=== PATIENT | female | born 1980 | race Caucasian/White ===

== ENCOUNTER 2017-04-15 09:20 | Emergency (ER) | payer SELFPAY ==
[~2017-04-15] VITALS: Ht 152.4 cm; Wt 70.3 kg
[~2017-04-15 09:20] MED LIST: ALPR0.5T PO; HYDR-2758 PO; IBUP-1027 PO; ONDA4TAB10 SL; ONDA4TAB12 PO; ONDA4TAB7 PO; TRAM50TA PO
--- NOTE | 2017-04-15 09:43 | PHYS DOC ---
Past Medical History Past Medical History: Endometriosis, Ovarian Cyst Additional Past Medical Histor: cystitist Past Surgical History: Cholecystectomy, , Hysterectomy, Other Additional Past Surgical Histo: biopsy neck for lymph node CA-neg, carpal tunnel, right shoulder, L elbow Alcohol Use: None Drug Use: Marijuana Adult General Chief Complaint Chief Complaint: ABDOMINAL PAIN [facility] HPI Patient is a 36 year old female with a history of interstitial cystitis presents the ED complaining of lower abdominal pain 1 day. Patient states she woke up yesterday with abdominal pain and has been getting worse ever since. Describes the pain as sharp. Rates the pain as 9 out of 10. History of a hysterectomy and cholecystectomy. Associated symptoms include diarrhea and nausea. States similar symptoms and treated in [place] a few months ago. Denies chest pain, shortness of breath, vomiting, dizziness, dysuria, pelvic pain, vaginal bleeding/discharge or weakness. Review of Systems Review of Systems Constitutional: Denies fever or chills [] Eyes: Denies change in visual acuity, redness, or eye pain [] HENT: Denies nasal congestion or sore throat [] Respiratory: Denies cough or shortness of breath [] Cardiovascular: No additional information not addressed in HPI [] GI: Complains of abdominal pain and nausea. Denies vomiting, bloody stools or diarrhea [] : Denies dysuria or hematuria [] Musculoskeletal: Denies back pain or joint pain [] Integument: Denies rash or skin lesions [] Neurologic: Denies headache, focal weakness or sensory changes [] Endocrine: Denies polyuria or polydipsia [] Current Medications Current Medications Current Medications Medications (Trade) Dose Ordered Sig/Mansi Start Time Stop Time Status Last Admin Dose Admin Iohexol (Omnipaque 300 Mg/ml) 75 ml 1X ONCE 04/15/17 10:00 04/15/17 10:02 DC Morphine Sulfate 4 mg 1X ONCE 04/15/17 11:30 04/15/17 11:31 DC 04/15/17 11:50 4 MG Ondansetron HCl (Zofran) 4 mg 1X ONCE 04/15/17 09:45 04/15/17 09:46 DC 04/15/17 10:03 4 MG Allergies Allergies Allergies Coded Allergies Type Severity Reaction Last Updated Verified No Known Drug Allergies 04/08/16 No Physical Exam Physical Exam Constitutional: Well developed, well nourished, no acute distress, non-toxic appearance. [] HENT: Normocephalic, atraumatic, bilateral external ears normal, oropharynx moist, no oral exudates, nose normal. [] Eyes: PERRLA, EOMI, conjunctiva normal, no discharge. [] Neck: Normal range of motion, no tenderness, supple, no stridor. [] Cardiovascular:Heart rate regular rhythm, no murmur [] Lungs & Thorax: Bilateral breath sounds clear to auscultation [] Abdomen: Bowel sounds normal, soft, MILD DIFFUSE LOWER ABDOMINAL TENDERNESS. no masses, no pulsatile masses. [] REFUSED EXAM. Skin: Warm, dry, no erythema, no rash. [] Back: No tenderness, no CVA tenderness. [] Extremities: No tenderness, no cyanosis, no clubbing, ROM intact, no edema. [] Neurologic: Alert and oriented X 3, normal motor function, normal sensory function, no focal deficits noted. [] Psychologic: Affect normal, judgement normal, mood normal. [] Current Patient Data Vital Signs Vital Signs Date Time Temp Pulse Resp B/P (MAP) Pulse Ox O2 Delivery O2 Flow Rate FiO2 04/15/17 11:57 80 20 122/81 (95) 97 Room Air 04/15/17 09:28 97.9 97.9 Lab Values Laboratory Tests Test 04/15/17 09:28 04/15/17 09:50 Urine Collection Type Void Urine Color Yellow Urine Clarity Clear Urine pH 5.5 Urine Specific [place] 1.025 Urine Protein Negative mg/dL (NEG-TRACE) Urine Glucose (UA) Negative mg/dL (NEG) Urine Ketones (Stick) Negative mg/dL (NEG) Urine Blood Moderate (NEG) Urine Nitrite Negative (NEG) Urine Bilirubin Negative (NEG) Urine Urobilinogen Dipstick 0.2 mg/dL (0.2 mg/dL) Urine Leukocyte Esterase Negative (NEG) Urine RBC 3-5 /HPF (0-2) Urine WBC 0 /HPF (0-4) Urine Squamous Epithelial Cells Mod /LPF Urine Bacteria Few /HPF (0-FEW) Urine Mucus Marked /LPF White Blood Count 11.4 x10^3/uL (4.0-11.0) H Red Blood Count 5.00 x10^6/uL (3.50-5.40) Hemoglobin 15.3 g/dL (12.0-15.5) Hematocrit 46.4 % (36.0-47.0) Mean Corpuscular Volume 93 fL (79-100) Mean Corpuscular Hemoglobin 31 pg (25-35) Mean Corpuscular Hemoglobin Concent 33 g/dL (31-37) Red Cell Distribution Width 13.3 % (11.5-14.5) Platelet Count 348 x10^3/uL (140-400) Sodium Level 138 mmol/L (136-145) Potassium Level 4.3 mmol/L (3.5-5.1) Chloride Level 104 mmol/L (98-107) Carbon Dioxide Level 27 mmol/L (21-32) Anion Gap 7 (6-14) Blood Urea Nitrogen 9 mg/dL (7-20) Creatinine 0.9 mg/dL (0.6-1.0) Estimated GFR (Cockcroft-Gault) 71.7 BUN/Creatinine Ratio 10 (6-20) Glucose Level 114 mg/dL (70-99) H Calcium Level 9.3 mg/dL (8.5-10.1) Total Bilirubin 0.2 mg/dL (0.2-1.0) Aspartate Amino Transferase (AST) 14 U/L (15-37) L Alanine Aminotransferase (ALT) 16 U/L (14-59) Alkaline Phosphatase 83 U/L (46-116) Total Protein 7.4 g/dL (6.4-8.2) Albumin 4.0 g/dL (3.4-5.0) Albumin/Globulin Ratio 1.2 (1.0-1.7) Lipase 365 U/L (73-393) Laboratory Tests 04/15/17 09:50 Laboratory Tests 04/15/17 09:50 EKG EKG [] Radiology/Procedures Radiology/Procedures CT abdomen/pelvis Indication: Lower abdominal pain Technique: CT abdomen/pelvis with 75 mL of Omnipaque 300 with multiplanar reformats. Comparison: Previous study from 03/19/2016 Findings: Heart is normal in size. No pericardial or pleural effusion. Stable 6 mm ground is opacity in the right middle lobe dating back to 2014. Mild dependent atelectasis. 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 Status post cholecystectomy. Spleen within normal limits. Pancreas within normal limits. Adrenal glands show no nodularity. No suspicious renal lesions. Shotty para-aortic mesenteric lymph node noted, the largest measuring 1.1 cm (series 2 image 41), previously same. Multiple central mesenteric lymph nodes noted, the largest measuring 9 mm (series 2 image 43). No bowel obstruction. Appendix is visualized and is within normal limits. Bladder within normal limits. Uterus is not visualized likely surgically absent. No solid adnexal lesions. No free pelvic fluid. No suspicious bony lesions. Impression: 1. Multiple prominent and minimally enlarged mesenteric lymph nodes. These are nonspecific but may represent mesenteric adenitis. 2. Stable 6 mm right middle lobe nodule dating back to August 2014. This is most likely benign. PQRS Compliance Statement: One or more of the following individualized dose reduction techniques were utilized for this examination: 1. Automated exposure control 2. Adjustment of the mA and/or kV according to patient size 3. Use of iterative reconstruction technique[] Course & Med Decision Making Course & Med Decision Making Pertinent Labs and Imaging studies reviewed. (See chart for details) []Discussed labs and imaging with patient. Patient's pain improved. On re- examination, abdomen is soft nontender nondistended. No peritoneal signs. Patient will be treated for mesenteric adenitis with analgesics and anti- inflammatories outpatient as well as close follow-up. Patient states she had similar symptoms when she was in [place] and treated with the same regimen. Vitals stable, no acute distress. Discussed follow-up in 1-2 days with PCP. Discussed the importance of follow-up. Discussed reasons to return to the ED. Patient understands and agrees with plan. Mother at bedside. Dragon Disclaimer Dragon Disclaimer This electronic medical record was generated, in whole or in part, using a voice recognition dictation system. Departure Departure Impression: Primary Impression: Abdominal pain Additional Impression: Mesenteric adenitis Disposition: 01 HOME, SELF-CARE Condition: STABLE Referrals: NEYDA DOVER (PCP) Patient Instructions: Mesenteric Adenitis Scripts Hydrocodone/Apap 5-325 (NORCO 5-325 TABLET) 1 Each Tablet 1 TAB PO TID, #12 TAB Prov: DUKE COPELAND 04/15/17 Ibuprofen (IBUPROFEN) 800 Mg Tablet 800 MG PO PRN Q6HRS Y for INFLAMMATION, #30 TAB Prov: DUKE COPELAND 04/15/17 Problem Qualifiers DUKE COPELAND Apr 15, 2017 09:43
[2017-04-15] MEDS ORDERED: MORPHINE SULFATE 4 MG/ML DISP.SYRIN. IV ONE ×2 (09:45→11:30)
[2017-04-15] MEDS ORDERED: ONDANSETRON PF 4 MG/2 ML VIAL. IV ONE (09:45)
[2017-04-15 09:46] LABS: BILIRUBIN,URINE NEGATIVE (NEG); GLUCOSE,URINE NEGATIVE (NEG); NITRITE,URINE NEGATIVE (NEG); PH,URINE 5.5; PROTEIN,URINE NEGATIVE (NEG-TRACE); UROBILINOGEN,URINE 0.2 mg/dL (0.2 mg/dL)
[2017-04-15 09:57] LABS: BACTERIA,URINE FEW /HPF (0-FEW); SQUAMOUS EPITHELIAL CELL,UR MOD /LPF; WBC,URINE 0 /HPF (0-4)
[2017-04-15] MEDS ORDERED: IOHEXOL 300 MG/ML 75 ML VIAL IV ONE ×2 (10:00)
[2017-04-15 10:06] LABS: HEMATOCRIT 46.4 % (36.0-47.0); HEMOGLOBIN 15.3 g/dL (12.0-15.5); RED CELL DISTRIBUTION WIDTH 13.3 % (11.5-14.5); WHITE BLOOD COUNT 11.4 x10^3/uL (4.0-11.0)
[2017-04-15 10:17] LABS: CALCIUM 9.3 mg/dL (8.5-10.1); CREATININE 0.9 mg/dL (0.6-1.0); GFR 71.7; POTASSIUM 4.3 mmol/L (3.5-5.1)
[2017-04-15 10:23] LABS: ALBUMIN/GLOBULIN RATIO 1.2 (1.0-1.7); TOTAL BILIRUBIN 0.2 mg/dL (0.2-1.0); TOTAL PROTEIN 7.4 g/dL (6.4-8.2)
--- NOTE | 2017-04-15 11:02 | RAD ---
CT abdomen/pelvis Indication: Lower abdominal pain Technique: CT abdomen/pelvis with 75 mL of Omnipaque 300 with multiplanar reformats. Comparison: Previous study from 03/19/2016 Findings: Heart is normal in size. No pericardial or pleural effusion. Stable 6 mm ground is opacity in the right middle lobe dating back to 2014. Mild dependent atelectasis. 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 Status post cholecystectomy. Spleen within normal limits. Pancreas within normal limits. Adrenal glands show no nodularity. No suspicious renal lesions. Shotty para-aortic mesenteric lymph node noted, the largest measuring 1.1 cm (series 2 image 41), previously same. Multiple central mesenteric lymph nodes noted, the largest measuring 9 mm (series 2 image 43). No bowel obstruction. Appendix is visualized and is within normal limits. Bladder within normal limits. Uterus is not visualized likely surgically absent. No solid adnexal lesions. No free pelvic fluid. No suspicious bony lesions. Impression: 1. Multiple prominent and minimally enlarged mesenteric lymph nodes. These are nonspecific but may represent mesenteric adenitis. 2. Stable 6 mm right middle lobe nodule dating back to August 2014. This is most likely benign. PQRS Compliance Statement: One or more of the following individualized dose reduction techniques were utilized for this examination: 1. Automated exposure control 2. Adjustment of the mA and/or kV according to patient size 3. Use of iterative reconstruction technique
[2017-04-15] MEDS ORDERED: IBUP-1060 PO (11:20)
[2017-04-15] MEDS ORDERED: HYDR-971 PO (11:20)
[2017-04-15 11:57] VITALS: BP 122/81
== END 2017-04-15 12:00 | disposition home or self-care (01) ==
LOC: ER 09:20
DX: I88.0 Nonspecific mesenteric lymphadenitis (principal); Z90.710 Acquired absence of both cervix and uterus; Z90.49 Acquired absence of other specified parts of digestive tract
CPT/HCPCS: 36415; 74177; 80053; 81001; 83690; 85027; 96374; 96375; 96376; 99285; J2270; J2405; Q9967

== ENCOUNTER 2017-07-15 10:57 | Emergency (ER) | payer SELFPAY ==
[2017-07-15 11:16] LABS: URINE HCG POC HCG NEGATIVE (Negative)
[2017-07-15 11:17] LABS: BILIRUBIN,URINE NEGATIVE (NEG); CLARITY,URINE CLEAR; COLOR,URINE YELLOW; GLUCOSE,URINE NEGATIVE (NEG); NITRITE,URINE NEGATIVE (NEG); PROTEIN,URINE NEGATIVE (NEG-TRACE); UROBILINOGEN,URINE 0.2 mg/dL (0.2 mg/dL)
[2017-07-15 11:23] LABS: SQUAMOUS EPITHELIAL CELL,UR MANY /LPF
[2017-07-15 11:24] LABS: BACTERIA,URINE MODERATE /HPF (0-FEW)
[2017-07-15 11:31] LABS: ADD MAN DIFF? NO
[2017-07-15 11:40] LABS: BASO # 0.1 x10^3/uL (0.0-0.2); BASO % 1 % (0-3); EOS # 0.4 x10^3/uL (0.0-0.7); EOS % 4 % (0-3); HEMOGLOBIN 15.5 g/dL (12.0-15.5); LYMPH # 2.9 x10^3/uL (1.0-4.8); LYMPH % 29 % (24-48); MEAN CORPUSCULAR HEMOGLOBIN 31 pg (25-35); MEAN CORPUSCULAR HGB CONC 33 g/dL (31-37); MEAN CORPUSCULAR VOLUME 93 fL (79-100); MONO # 0.5 x10^3/uL (0.0-1.1); MONO % 5 % (0-9); NEUT # 6.2 x10^3uL (1.8-7.7); NEUT % 62 % (31-73); PLATELET COUNT 372 x10^3/uL (140-400); RED BLOOD COUNT 5.04 x10^6/uL (3.50-5.40); RED CELL DISTRIBUTION WIDTH 13.4 % (11.5-14.5)
[2017-07-15 11:49] LABS: ANION GAP 11 (6-14); BLOOD UREA NITROGEN 10 mg/dL (7-20); BUN/CREATININE RATIO 13 (6-20); CALCIUM 9.3 mg/dL (8.5-10.1); CARBON DIOXIDE 26 mmol/L (21-32); CHLORIDE 105 mmol/L (98-107); CREATININE 0.8 mg/dL (0.6-1.0); GFR 81.6; GLUCOSE 114 mg/dL (70-99); POTASSIUM 3.9 mmol/L (3.5-5.1); SODIUM 142 mmol/L (136-145)
[2017-07-15 11:55] LABS: ALBUMIN 4.2 g/dL (3.4-5.0); ALBUMIN/GLOBULIN RATIO 1.4 (1.0-1.7); ALK PHOS 70 U/L (46-116); ALT (SGPT) 17 U/L (14-59); AST (SGOT) 15 U/L (15-37); LIPASE 73 U/L (73-393); TOTAL BILIRUBIN 0.5 mg/dL (0.2-1.0); TOTAL PROTEIN 7.3 g/dL (6.4-8.2)
[2017-07-15] MEDS ORDERED: CONTRAST GIVEN MC (12:00)
[2017-07-15] MEDS: IV NORMAL SALINE 1000ML BAG 1,000 ML IV (12:07)
[2017-07-15] MEDS: fentaNYL PF VIAL 100 MCG/2 ML VIAL IV (12:08)
[2017-07-15] MEDS: ONDANSETRON ODT 4 MG TAB.RAPDIS. PO (12:08)
[2017-07-15] MEDS: IOHEXOL 300 MG/ML 100ML VIAL. IV (12:24)
== END 2017-07-15 13:09 | disposition home or self-care (01) ==
LOC: ER 10:57
DX: K52.9 Noninfective gastroenteritis and colitis, unspecified (principal); N30.00 Acute cystitis without hematuria; K31.84 Gastroparesis; F12.10 Cannabis abuse, uncomplicated; Z90.710 Acquired absence of both cervix and uterus; Z90.49 Acquired absence of other specified parts of digestive tract
CPT/HCPCS: 36415; 74177; 80053; 81001; 81025; 83690; 85025; 87086; 96361; 96374; 99285-25; J3010; J7030; Q0162; Q9967

== ENCOUNTER 2017-11-23 20:30 | Emergency (ER) | payer SELFPAY ==
[2017-11-23 20:51] LABS: URINE HCG POC HCG NEGATIVE (Negative)
[2017-11-23 21:21] LABS: BASO # 0.1 x10^3/uL (0.0-0.2); BASO % 0 % (0-3); EOS % 0 % (0-3); HEMATOCRIT 43.3 % (36.0-47.0); LYMPH # 1.4 x10^3/uL (1.0-4.8); LYMPH % 8 % (24-48); MEAN CORPUSCULAR HEMOGLOBIN 32 pg (25-35); MEAN CORPUSCULAR HGB CONC 35 g/dL (31-37); MEAN CORPUSCULAR VOLUME 92 fL (79-100); MONO # 0.2 x10^3/uL (0.0-1.1); MONO % 1 % (0-9); NEUT # 15.7 x10^3uL (1.8-7.7); NEUT % 91 % (31-73); PLATELET COUNT 464 x10^3/uL (140-400); RED BLOOD COUNT 4.72 x10^6/uL (3.50-5.40); RED CELL DISTRIBUTION WIDTH 13.3 % (11.5-14.5); WHITE BLOOD COUNT 17.4 x10^3/uL (4.0-11.0)
[2017-11-23 21:24] LABS: ADD MAN DIFF? YES
[2017-11-23] MEDS: ONDANSETRON PF 4 MG/2 ML VIAL. IV (21:26)
[2017-11-23] MEDS: IV NORMAL SALINE 1000ML BAG 1,000 ML IV (21:26)
[2017-11-23 21:30] LABS: ANION GAP 14 (6-14); BLOOD UREA NITROGEN 13 mg/dL (7-20); BUN/CREATININE RATIO 14 (6-20); CALCIUM 9.5 mg/dL (8.5-10.1); CARBON DIOXIDE 23 mmol/L (21-32); CHLORIDE 105 mmol/L (98-107); CREATININE 0.9 mg/dL (0.6-1.0); GFR 71.3; GLUCOSE 144 mg/dL (70-99); POTASSIUM 4.6 mmol/L (3.5-5.1); SODIUM 142 mmol/L (136-145)
[2017-11-23 21:36] LABS: ALK PHOS 67 U/L (46-116); ALT (SGPT) 27 U/L (14-59); AST (SGOT) 24 U/L (15-37); LIPASE 47 U/L (73-393); TOTAL BILIRUBIN 0.5 mg/dL (0.2-1.0); TOTAL PROTEIN 7.9 g/dL (6.4-8.2)
[2017-11-23] MEDS: diphenhydrAMINE 50 MG/ML VIAL IVP (22:08)
[2017-11-23] MEDS: METOCLOPRAMIDE HCL 10 MG/2 ML VIAL. IV (22:08)
[2017-11-23 22:10] LABS: % BANDS 3 % (0-9); % LYMPHS 6 % (24-48); % MONOS 2 % (0-10); % SEGS 89 % (35-66); PLT ESTIMATE INCREASED (ADEQUATE)
== END 2017-11-23 22:16 | disposition home or self-care (01) ==
LOC: ER 20:30
DX: K31.84 Gastroparesis (principal); F12.10 Cannabis abuse, uncomplicated; Z90.49 Acquired absence of other specified parts of digestive tract; Z90.710 Acquired absence of both cervix and uterus
CPT/HCPCS: 36415; 80053; 81025; 83690; 85007; 85025; 96361; 96374; 96375; 99284; J1200; J2405; J2765; J7030

== ENCOUNTER 2017-11-25 15:47 | Emergency (ER) | payer SELFPAY ==
[2017-11-25 17:15] LABS: ADD MAN DIFF? NO
[2017-11-25 17:18] LABS: BASO # 0.1 x10^3/uL (0.0-0.2); BASO % 0 % (0-3); EOS % 0 % (0-3); HEMATOCRIT 46.3 % (36.0-47.0); HEMOGLOBIN 15.9 g/dL (12.0-15.5); LYMPH # 2.2 x10^3/uL (1.0-4.8); LYMPH % 15 % (24-48); MEAN CORPUSCULAR HEMOGLOBIN 32 pg (25-35); MEAN CORPUSCULAR HGB CONC 34 g/dL (31-37); MEAN CORPUSCULAR VOLUME 92 fL (79-100); MONO # 0.5 x10^3/uL (0.0-1.1); MONO % 3 % (0-9); NEUT # 11.9 x10^3uL (1.8-7.7); NEUT % 81 % (31-73); PLATELET COUNT 407 x10^3/uL (140-400); RED BLOOD COUNT 5.03 x10^6/uL (3.50-5.40); RED CELL DISTRIBUTION WIDTH 13.1 % (11.5-14.5); WHITE BLOOD COUNT 14.7 x10^3/uL (4.0-11.0)
[2017-11-25] MEDS: ONDANSETRON PF 4 MG/2 ML VIAL. IV (17:19)
[2017-11-25] MEDS: LIDO:MAALOX 1:1 20 ML SINGLE DOSE. SWSW (17:19)
[2017-11-25] MEDS: ASPIRIN 325 MG TABLET PO (17:19)
[2017-11-25] MEDS: METOCLOPRAMIDE HCL 10 MG/2 ML VIAL. IV (17:19)
[2017-11-25] MEDS: MORPHINE SULFATE 4 MG/ML DISP.SYRIN. IV/SQ (17:20)
[2017-11-25] MEDS: IV NORMAL SALINE 1000ML BAG 1,000 ML IV (17:21)
[2017-11-25 17:53] LABS: PROTHROMBIN TIME PATIENT 12.8 SEC (11.7-14.0)
[2017-11-25 17:56] LABS: ANION GAP 10 (6-14); BLOOD UREA NITROGEN 12 mg/dL (7-20); BUN/CREATININE RATIO 12 (6-20); CALCIUM 9.4 mg/dL (8.5-10.1); CARBON DIOXIDE 28 mmol/L (21-32); CHLORIDE 102 mmol/L (98-107); GFR 63.1; GLUCOSE 97 mg/dL (70-99); SODIUM 140 mmol/L (136-145)
[2017-11-25 17:57] LABS: D-DIMER 0.27 ug/mlFEU (0.00-0.50)
[2017-11-25 17:59] LABS: ALBUMIN 4.1 g/dL (3.4-5.0); ALBUMIN/GLOBULIN RATIO 1.2 (1.0-1.7); ALK PHOS 61 U/L (46-116); ALT (SGPT) 34 U/L (14-59); AST (SGOT) 19 U/L (15-37); LIPASE 150 U/L (73-393); MAGNESIUM 1.9 mg/dL (1.8-2.4); TOTAL BILIRUBIN 0.6 mg/dL (0.2-1.0); TOTAL PROTEIN 7.5 g/dL (6.4-8.2)
[2017-11-25 18:00] LABS: TROPONINI < 0.017 ng/mL (0.000-0.055)
[2017-11-25 18:05] LABS: THYROID STIM HORMONE (TSH) 0.928 uIU/mL (0.358-3.74)
[2017-11-25 18:10] LABS: NT-PRO BNP 211 pg/mL (0-124)
[2017-11-25 18:10] LABS: CKMB MASS < 0.5 ng/mL (0.0-3.6); CREATINE KINASE 35 U/L (26-192)
[2017-11-25 18:42] LABS: BARBITURATES NEG (NEG); BENZODIAZEPINES POS (NEG); CANNABINOIDS POS (NEG); COCAINE NEG (NEG); METHADONE NEG (NEG); OPIATES POS (NEG); PHENCYCLIDINE NEG (NEG)
[2017-11-25 18:43] LABS: AMPHETAMINE/METHAMPHETAMINE NEG (NEG); ETHANOL, URINE NEG (NEG)
[2017-11-25 18:46] LABS: BILIRUBIN,URINE SMALL (NEG); CLARITY,URINE CLEAR; COLOR,URINE YELLOW; GLUCOSE,URINE NEGATIVE (NEG); NITRITE,URINE NEGATIVE (NEG); PROTEIN,URINE NEGATIVE (NEG-TRACE)
[2017-11-25 19:02] LABS: BACTERIA,URINE 0 /HPF (0-FEW); SQUAMOUS EPITHELIAL CELL,UR OCC /LPF; WBC,URINE OCC /HPF (0-4); YEAST,URINE PRESENT /HPF
== END 2017-11-25 19:00 | disposition home or self-care (01) ==
LOC: ER 15:47
DX: K31.84 Gastroparesis (principal); R07.2 Precordial pain; F12.10 Cannabis abuse, uncomplicated
CPT/HCPCS: 36415; 71045; 80053; 80307; 81001; 82553; 83690; 83735; 83880; 84443; 84484; 85025; 85379; 85610; 93005; 96374; 96375; 99285-25; J2270; J2405; J2765; J7030